=== PATIENT | female | born 1990 | race Caucasian/White ===

== ENCOUNTER 2020-12-14 18:38 | Emergency (ER) | payer BC ==
[2020-12-14] MEDS ORDERED: NA CHLORIDE 0.9% 1,000 ML ONE (20:11)
[2020-12-14 20:18] LABS: Urine Blood Trace-intact (Negative); Urine Glucose Negative (Negative); Urine Protein Negative (Negative); Urine Specific Gravity 1.015 (1.005-1.030)
[2020-12-14 20:28] LABS: Absolute Lymphocytes (CBC) 3.1 K/uL (0.7-4.9); Basophils % 0.5 % (0-1.3); Lymphocytes % 39.7 % (15.3-44.8); MPV 8.9 fL (7.6-11.3); RBC Red Blood Cell Count 4.96 M/uL (3.86-4.86)
[2020-12-14 20:29] LABS: Protime INR 1.06
[2020-12-14 21:04] LABS: Urine Specific Gravity/Preg 1.015 (1.005-1.030)
[2020-12-14 21:08] LABS: Urine Bacteria >50 /HPF (<20); Urine RBC <5 /HPF (NONE SEEN)
[2020-12-14 21:09] LABS: Urine Coarse Granular Casts 0-5 /LPF (NONE SEEN); Urine Mucus 1+ /HPF (NONE SEEN)
[2020-12-14] MEDS ORDERED: dexAMETHasone 10 MG/ML VIAL ONE (22:08)
[2020-12-14] MEDS ORDERED: CEFTRIAXONE/SWI 1gm 1 GM/10 ML SYR ONE (22:08)
[2020-12-14 23:09] LABS: ALT/SGPT 31 U/L (12-78); AST/SGOT 23 U/L (15-37); Albumin 3.3 g/dL (3.4-5.0); Alkaline Phosphatase 59 U/L (45-117); BUN Blood Urea Nitrogen 11 mg/dL (7-18); Bicarbonate 27 mmol/L (21-32); Bilirubin Direct < 0.1 mg/dL (0-0.2); Bilirubin Total 0.3 mg/dL (0.2-1.0); Glucose Level 114 mg/dL (74-106); Magnesium 2.1 mg/dL (1.8-2.4); Potassium 3.7 mmol/L (3.5-5.1); Protein, Total 8.1 g/dL (6.4-8.2); Sodium Level 137 mmol/L (136-145); Troponin (Emerg Dept Use Only) < 0.02 ng/mL (0.0-0.045)
[2020-12-14 23:18] LABS: NT PRO-BNP < 5 pg/mL (<125)
--- NOTE | 2020-12-14 23:38 | ER ---
Nurse's Notes [facility] Name: Stacie Gonzalez Age: 30 yrs Sex: Female : 1990 Arrival Date: 12/14/2020 Time: 18:40 Bed 13 Private MD: Diagnosis: Cough;SARS-associated coronavirus as the cause of diseases classified elsewhere Presentation: 12/14 18:50 Chief complaint: Patient states: i tested POSITIVE to covid on SATURDAY, over the last tw2 couple of days i have a light raw sensation in my upper chest. my doctor sent me for a CT today. i have PNE. Earlier I started having a really bad spell of coughing and couldn't catch my breath. Coronavirus screen: Client presents with at least one sign or symptom that may indicate coronavirus-19. Standard/surgical mask placed on the client. Provider contacted for isolation considerations. Client reports previous positive COVID test result. Date of collection: December 09, 2020. Ebola Screen: Patient denies travel to an Ebola-affected area in the 21 days before illness onset. Initial Sepsis Screen: Does the patient meet any 2 criteria? HR > 90 bpm. No. Patient's initial sepsis screen is negative. Does the patient have a suspected source of infection? No. Patient's initial sepsis screen is negative. Risk Assessment: Do you want to hurt yourself or someone else? Patient reports no desire to harm self or others. Onset of symptoms was December 14, 2020. 18:50 Method Of Arrival: Ambulatory tw2 18:50 Acuity: BRIANDA 3 tw2 Triage Assessment: 18:54 General: Appears in no apparent distress. obese, well groomed, Behavior is calm, tw2 cooperative, appropriate for age. Pain: Complains of pain in chest. Respiratory: Reports shortness of breath at rest on exertion cough that is non-productive, persistent Onset: The symptoms/episode began/occurred 2 days ago, the patient has mild shortness of breath. 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 - Social history:: Smoking status: Patient denies any tobacco usage or history of. Screenin:20 Abuse screen: Denies threats or abuse. Denies injuries from another. Nutritional ca1 screening: No deficits noted. Tuberculosis screening: No symptoms or risk factors identified. Fall Risk None identified. Assessment: 19:20 General: Appears in no apparent distress. comfortable, Behavior is calm, cooperative, ca1 appropriate for age. Pain: Denies pain. Neuro: Level of Consciousness is awake, alert, obeys commands, Oriented to person, place, time, situation. Cardiovascular: Heart tones S1 S2 present Capillary refill < 3 seconds Rhythm is sinus tachycardia. 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 GI: Abdomen is round non-distended, Bowel sounds present X 4 quads. Abd is soft and non tender X 4 quads. Derm: Skin is intact, is healthy with good turgor, Skin is pink, warm \T\ dry. Musculoskeletal: Circulation, motion, and sensation intact. Capillary refill < 3 seconds. 20:30 Reassessment: Patient appears in no apparent distress at this time. Patient and/or ca1 family updated on plan of care and expected duration. Pain level reassessed. Patient is alert, oriented x 3, equal unlabored respirations, skin warm/dry/pink. 20:31 Cardiovascular: Rhythm is sinus rhythm. ca1 21:26 Reassessment: Patient appears in no apparent distress at this time. Patient is alert, ca1 oriented x 3, equal unlabored respirations, skin warm/dry/pink. 22:47 Reassessment: Patient appears in no apparent distress at this time. Patient and/or ca1 family updated on plan of care and expected duration. Pain level reassessed. Patient is alert, oriented x 3, equal unlabored respirations, skin warm/dry/pink. 23:51 Reassessment: Patient appears in no apparent distress at this time. Patient and/or ca1 family updated on plan of care and expected duration. Pain level reassessed. Patient is alert, oriented x 3, equal unlabored respirations, skin warm/dry/pink. Patient states feeling better. Vital Signs: 18:50 BP 137 / 84; Pulse 119; Resp 19; Temp 97.9(TE); Pulse Ox 95% on R/A; Weight 131.09 kg tw2 (R); Height 5 ft. 6 in. (167.64 cm); Pain 1/10; 20:30 Pulse 91; Resp 16 S; Pulse Ox 100% on R/A; ca1 20:34 BP 101 / 61; ca1 21:26 BP 108 / 62; Pulse 89; Resp 18 S; Pulse Ox 94% on R/A; ca1 22:47 BP 106 / 58; Pulse 82; Resp 16 S; Pulse Ox 98% on R/A; ca1 23:51 BP 99 / 57; Pulse 89; Resp 16 S; Pulse Ox 99% on R/A; ca1 18:50 Body Mass Index 46.65 (131.09 kg, 167.64 cm) tw2 ED Course: 18:40 Patient arrived in ED. ds1 18:52 Triage completed. tw2 18:54 Arm band placed on. tw2 19:11 Ayana Carvajal, SPARKLE is Primary Nurse. ca1 19:14 Young Mckenzie PA is PHCP. cp 19:14 Young Lawson MD is Attending Physician. cp 19:20 Patient has correct armband on for positive identification. Bed in low position. Call ca1 light in reach. Side rails up X2. Pulse ox on. NIBP on. 20:10 Initial lab(s) drawn, by ED staff, sent to lab. Inserted saline lock: 20 gauge in right ca1 antecubital area, using aseptic technique. ,using aseptic technique. by [facility] Tech Blood collected. 20:29 Urine Microscopic Only Sent. ca1 21:44 PHCP role handed off by Young Mckenzie PA jr8 21:44 Chet Solomon PA is PHCP. jr8 23:51 No provider procedures requiring assistance completed. IV discontinued, intact, ca1 bleeding controlled, No redness/swelling at site. Pressure dressing applied. Administered Medications: 20:11 Drug: NS 0.9% 1000 ml Route: IV; Rate: 1 bolus; Site: right antecubital; ca1 21:26 Follow up: Response: No adverse reaction; IV Status: Completed infusion; IV Intake: ca1 1000ml 21:30 Follow up: Response: No adverse reaction; IV Status: Completed infusion; IV Intake: ca1 1000ml 21:47 Drug: Rocephin (cefTRIAXone) 1 grams Route: IV; Rate: calculated rate; Site: right ca1 antecubital; 22:47 Follow up: Response: No adverse reaction; IV Status: Completed infusion ca1 21:52 Drug: Decadron - Dexamethasone 6 mg Route: IVP; Site: right antecubital; ca1 22:48 Follow up: Response: No adverse reaction; Marked relief of symptoms ca1 Intake: 21:26 IV: 1000ml; Total: 1000ml. ca1 21:30 IV: 1000ml; Total: 2000ml. ca1 Outcome: 23:38 Discharge ordered by MD. jiang 23:51 Discharged to home ambulatory, with significant other. ca1 23:51 Condition: stable 23:51 Discharge instructions given to patient, Instructed on discharge instructions, follow up and referral plans. medication usage, Demonstrated understanding of instructions, follow-up care, medications, Prescriptions given X 1. 23:52 Patient left the ED. ca1 Signatures: Sravanthi Fuentes ds1 Chet Solomon PA PA jr8 Young Mckenzie PA PA cp Wise, Tara, RN RN tw2 Ayana Carvajal RN RN ca1
--- NOTE | 2020-12-14 23:38 | EDPHYS ---
Physician Documentation [facility] Name: Stacie Gonzalez Age: 30 yrs Sex: Female : 1990 Arrival Date: 12/14/2020 Time: 18:40 Bed 13 Private MD: ED Physician Young Lawson HPI: 12/14 19:50 This 30 yrs old Female presents to ER via Ambulatory with complaints of cp Cough, Shortness Of Breath. 19:50 The patient or guardian reports cough, that is intermittent, with no sputum, difficulty cp breathing. 19:50 Onset: The symptoms/episode began/occurred gradually. Severity of symptoms: in the emergency department the symptoms have improved. Patient reports being diagnosed with COVID-19 last Saturday. Took 5 day course of oral prednisone and Zithromax. Reports being seen at [facility] today and having CT of chest that was negative for pulmonary embolism. Patient reports she came to ED because of coughing fit at home and shortness of breath. 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 - Social history:: Smoking status: Patient denies any tobacco usage or history of. ROS: 19:55 Eyes: Negative for injury, pain, redness, and discharge. cp 19:55 Constitutional: Negative for body aches, chills, fever, poor PO intake. 19:55 ENT: Negative for ear pain, sore throat, difficulty swallowing, difficulty handling secretions. 19:55 Cardiovascular: Negative for chest pain, edema, palpitations. 19:55 Respiratory: Positive for cough, shortness of breath, Negative for wheezing. 19:55 Abdomen/GI: Negative for abdominal pain, nausea, vomiting, and diarrhea. 19:55 Neuro: Negative for altered mental status, headache, weakness. 19:55 All other systems are negative. Exam: 20:00 Constitutional: The patient appears in no acute distress, alert, awake, cp non-diaphoretic, non-toxic, well developed, well nourished, obese. 20:00 Head/Face: Normocephalic, atraumatic. cp 20:00 Eyes: Periorbital structures: appear normal, Conjunctiva: normal, no exudate, no injection, Sclera: no appreciated abnormality, Lids and lashes: appear normal, bilaterally. 20:00 ENT: External ear(s): are unremarkable, Nose: is normal, Mouth: Lips: moist, Oral mucosa: moist, Posterior pharynx: Airway: no evidence of obstruction, patent. 20:00 Neck: ROM/movement: is normal, is supple, without pain, no range of motions limitations. 20:00 Chest/axilla: Inspection: normal, Palpation: is normal, no crepitus, no tenderness. 20:00 Cardiovascular: Rate: tachycardic, Rhythm: regular, Edema: is not appreciated, JVD: is not appreciated. 20:00 Respiratory: the patient does not display signs of respiratory distress, Respirations: normal, no use of accessory muscles, no retractions, labored breathing, is not present, Breath sounds: bronchial sounds, that are mild, are heard diffusely, decreased breath sounds, are not appreciated, wheezing: is not appreciated. 20:00 Abdomen/GI: Inspection: abdomen appears normal, Palpation: abdomen is soft and non-tender, in all quadrants, rebound tenderness, is not appreciated, involuntary guarding, is not appreciated. 20:00 Back: pain, is absent, ROM is normal. 20:00 Neuro: Orientation: to person, place \T\ time. Mentation: is normal, Motor: moves all fours, strength is normal. 20:28 ECG was reviewed by the Attending Physician. cp Vital Signs: 18:50 BP 137 / 84; Pulse 119; Resp 19; Temp 97.9(TE); Pulse Ox 95% on R/A; Weight 131.09 kg tw2 (R); Height 5 ft. 6 in. (167.64 cm); Pain 1/10; 20:30 Pulse 91; Resp 16 S; Pulse Ox 100% on R/A; ca1 20:34 BP 101 / 61; ca1 21:26 BP 108 / 62; Pulse 89; Resp 18 S; Pulse Ox 94% on R/A; ca1 22:47 BP 106 / 58; Pulse 82; Resp 16 S; Pulse Ox 98% on R/A; ca1 23:51 BP 99 / 57; Pulse 89; Resp 16 S; Pulse Ox 99% on R/A; ca1 18:50 Body Mass Index 46.65 (131.09 kg, 167.64 cm) tw2 MDM: 19:18 Patient medically screened. brandon 23:31 Data reviewed: vital signs, nurses notes, lab test result(s). Data interpreted: Pulse jr8 oximetry: on room air is 98 %. Interpretation: normal. Counseling: I had a detailed discussion with the patient and/or guardian regarding: the historical points, exam findings, and any diagnostic results supporting the discharge/admit diagnosis, lab results, the need for outpatient follow up, a family practitioner, to return to the emergency department if symptoms worsen or persist or if there are any questions or concerns that arise at home. ED course: Patient feeling well at this point. No concerning findings on labs. Will d/c home with cough medicine . 12/14 19:46 Order name: Basic Metabolic Panel cp 12/14 19:46 Order name: CBC with Diff cp 12/14 19:46 Order name: LFT's cp 12/14 19:46 Order name: Magnesium cp 12/14 19:46 Order name: NT PRO-BNP cp 12/14 19:46 Order name: PT-INR cp 12/14 19:46 Order name: Troponin (emerg Dept Use Only) cp 12/14 19:47 Order name: CRP cp 12/14 19:47 Order name: Ferritin cp 12/14 20:19 Order name: Urine Microscopic Only tt3 12/14 20:19 Order name: Urine Dipstick-Ancillary; Complete Time: 21:08 EDMS 12/14 21:08 Interpretation: Normal except: UBLD Trace-intact; UESTR 3+. cp 12/14 20:31 Order name: Urine --Ancillary (enter results) tt3 12/14 20:35 Order name: Protime (+INR); Complete Time: 21:08 EDMS 12/14 20:36 Order name: CBC with Automated Diff; Complete Time: 21:08 EDMS 12/14 21:08 Interpretation: Normal except: RBC 4.96; MCV 86.7. cp 12/14 19:46 Order name: EKG; Complete Time: 19:47 cp 12/14 19:46 Order name: Cardiac monitoring; Complete Time: 20:32 cp 12/14 19:46 Order name: EKG - Nurse/Tech; Complete Time: 20:29 cp 12/14 19:46 Order name: IV Saline Lock; Complete Time: 20:29 cp 12/14 21:05 Order name: Urine --Ancillary; Complete Time: 21:08 EDMS 12/14 21:09 Order name: Urine Microscopic Only; Complete Time: 21:16 EDMS 12/14 21:17 Interpretation: Normal except: UWBC 5-10; UBACT >50; SQEPI 5-10. cp 12/14 23:19 Order name: Basic Metabolic Panel; Complete Time: 23:29 EDMS 12/14 23:19 Order name: Liver (Hepatic) Function; Complete Time: 23:29 EDMS 12/14 23:19 Order name: Troponin (Emerg Dept Use Only); Complete Time: 23:29 EDMS 12/14 23:19 Order name: NT PRO-BNP; Complete Time: 23:29 EDMS 12/14 23:19 Order name: C-Reactive Protein; Complete Time: 23:29 EDMS 12/14 23:19 Order name: Magnesium; Complete Time: 23:29 EDMS 12/14 23:24 Order name: Ferritin; Complete Time: 23:29 EDMS 12/14 19:46 Order name: Labs collected and sent; Complete Time: 20:29 cp 12/14 19:47 Order name: O2 Per Protocol; Complete Time: 19:47 cp 12/14 19:47 Order name: O2 Sat Monitoring; Complete Time: 19:47 cp 12/14 19:47 Order name: Urine Dipstick-Ancillary (obtain specimen); Complete Time: 20:29 cp 12/14 19:47 Order name: Urine Test (obtain specimen); Complete Time: 20:29 cp EC:28 Rate is 91 beats/min. Rhythm is regular. ME interval is normal. QRS interval is normal. cp QT interval is normal. T waves are Inverted in lead aVR. Interpreted by me. Reviewed by me. Administered Medications: 20:11 Drug: NS 0.9% 1000 ml Route: IV; Rate: 1 bolus; Site: right antecubital; ca1 21:26 Follow up: Response: No adverse reaction; IV Status: Completed infusion; IV Intake: ca1 1000ml 21:30 Follow up: Response: No adverse reaction; IV Status: Completed infusion; IV Intake: ca1 1000ml 21:47 Drug: Rocephin (cefTRIAXone) 1 grams Route: IV; Rate: calculated rate; Site: right ca1 antecubital; 22:47 Follow up: Response: No adverse reaction; IV Status: Completed infusion ca1 21:52 Drug: Decadron - Dexamethasone 6 mg Route: IVP; Site: right antecubital; ca1 22:48 Follow up: Response: No adverse reaction; Marked relief of symptoms ca1 Disposition: 12/14/20 23:38 Discharged to Home. Impression: Cough, SARS-associated coronavirus as the cause of diseases classified elsewhere. - Condition is Stable. - Discharge Instructions: Cough, Adult, COVID-19. - Prescriptions for promethazine- DM 6.25-15 mg/5 mL Oral syrup - take 5 milliliter by ORAL route every 6 hours As needed as needed; 100 milliliter. - Medication Reconciliation Form, Thank You Letter, Antibiotic Education, Prescription Opioid Use form. - Follow up: Private Physician; When: 1 - 2 days; Reason: Recheck today's complaints, Continuance of care, Re-evaluation by your physician. - Problem is new. - Symptoms have improved. Signatures: Dispatcher [employer] EDMS Young Lawson MD MD cha Roszak, Josh, PA PA jr8 Young Mckenzie PA PA cp Wise, Tara, SPARKLE RN tw2 Ayana Carvajal RN RN ca1 Corrections: (The following items were deleted from the chart) 23:52 23:38 12/14/2020 23:38 Discharged to Home. Impression: Cough; SARS-associated ca1 coronavirus as the cause of diseases classified elsewhere. Condition is Stable. Forms are Medication Reconciliation Form, Thank You Letter, Antibiotic Education, Prescription Opioid Use. Follow up: Private Physician; When: 1 - 2 days; Reason: Recheck today's complaints, Continuance of care, Re-evaluation by your physician. Problem is new. Symptoms have improved. jr8
[2020-12-15 00:58] VITALS: TEMP 97.9
[2020-12-15 01:06] VITALS: BP 99/57; O2SAT 99
--- NOTE | 2020-12-15 10:33 | EKG ---
Test Date: 2020-12-14 Test Time: 20:23:12 Critical Care Cns: CLEMENT MEASUREMENT RESULTS: Intervals: Rate: 91 NE: 162 QRSD: 86 QT: 352 QTc: 432 [place]: P: 47 NE: 162 QRS: 0 T: 26 INTERPRETIVE STATEMENTS: Normal sinus rhythm Minimal voltage criteria for LVH, may be normal variant Borderline ECG No previous ECG available for comparison Electronically Signed On 12-15-20 10:31:39 CDT by Janes Nolan
== END 2020-12-14 23:52 | disposition home or self-care (01) ==
LOC: ER 18:38
DX: U07.1 COVID-19 (principal); Z88.2 Allergy status to sulfonamides
CPT/HCPCS: 87088; 85025; 87086; 80048; 36415; 83735; 81025; 85610; 80076; 84484; 82728; 83880; 86140; J1100; J0696; J7030; 81003; 81015; 93005